=== PATIENT | female | born 1975 | race American Indian/Alaskan Native ===

== ENCOUNTER 2017-03-09 15:09 | Outpatient (CLI) | payer OTHER ==
--- NOTE | 2017-03-09 16:20 | XRay Report ---
LUMBAR SPINE THREE VIEWS: 03/09/17 15:09:00 CLINICAL: Low back pain. FINDINGS: Normal vertebral body height, alignment and disk spaces. The pedicles are intact. No fracture. Normal soft tissues. IMPRESSION: Normal study.
== END 2017-03-09 15:10 | disposition home or self-care (01) ==
LOC: XRAY 15:09
PROVIDERS: ATTEND Internal Medicine
DX: Z02.71 Encounter for disability determination (principal); M54.5 Low back pain
CPT/HCPCS: 72100